=== PATIENT | male | born 1985 | race Caucasian/White ===

== ENCOUNTER 2019-11-24 17:48 | Emergency (ER) | payer MEDICAID ==
[~2019-11-24] VITALS: Ht 190.5 cm; Wt 91.0 kg
[~2019-11-24 17:48] MED LIST: ALBU2TAB4; BUPR300T52; NORCO; QUET200T; WARF6TAB22
[2019-11-24 18:01] VITALS: BP 141/80
== END 2019-11-24 23:21 | disposition left against medical advice (07) ==
LOC: ER 17:48
DX: R10.9 Unspecified abdominal pain (principal); M25.562 Pain in left knee; Z53.21 Procedure and treatment not carried out due to patient leaving prior to being seen by health care provider

== ENCOUNTER 2021-08-04 05:47 | Emergency (ER) | payer MEDICAID ==
[~2021-08-04] VITALS: Ht 190.5 cm; Wt 77.0 kg
[2021-08-04 05:51] VITALS: BP 120/75
[2021-08-04] MEDS ORDERED: ACETAMINOPHEN 325MG TABLET PO ONE (06:15)
[2021-08-04] MEDS ORDERED: TOPUD PO (06:17)
== END 2021-08-04 06:40 | disposition home or self-care (01) ==
LOC: ER 05:47
DX: G89.29 Other chronic pain (principal); M79.662 Pain in left lower leg; J45.909 Unspecified asthma, uncomplicated; Z98.890 Other specified postprocedural states
CPT/HCPCS: 99282